=== PATIENT | male | born 1955 | race Caucasian/White ===

== ENCOUNTER 2018-12-28 09:40 | Emergency (ER) | payer BC, OTHER ==
[~2018-12-28] VITALS: Ht 175.3 cm; Wt 88.0 kg
[2018-12-28 09:52] VITALS: BP 149/88
[2018-12-28] MEDS ORDERED: LIDOCAINE VISCOUS 2% 15ML UD MT ONE (10:15)
[2018-12-28] MEDS ORDERED: methylPREDNISolone SOD SUCC 125 MG/2 ML VL IM ONE (10:15)
[2018-12-28] MEDS ORDERED: cefTRIAXone SOD 1,000 MG VL IM ONE (10:15)
== END 2018-12-28 10:34 | disposition home or self-care (01) ==
LOC: ER 09:40
DX: J02.9 Acute pharyngitis, unspecified (principal); J35.1 Hypertrophy of tonsils; M19.90 Unspecified osteoarthritis, unspecified site
CPT/HCPCS: 96372; 99283; J0696; J2930